=== PATIENT | female | born 1930 | race Caucasian/White ===

== ENCOUNTER 2017-04-09 12:55 | Inpatient (IN) ==
[2017-04-10] MEDS: Acetaminophen 325 MG TABLET PO PRN ×2 (05:19→20:35)
[2017-04-10 05:57] LABS: Basophils # 0.1 K/mcL (0.0-0.2); Basophils % 0.8 %; Eosinophils # 0.3 K/mcL (0.0-0.6); Eosinophils % 3.5 %; Hematocrit 29.7 % (35.3-44.9); Hemoglobin 10.2 g/dL (11.5-15.4); Immature Granulocytes % 0.5 % (0-4); Lymphocytes # 2.3 K/mcL (0.6-4.6); Lymphocytes % 29.7 %; Mean Corpuscular HGB Conc 34.3 g/dL (31.6-35.5); Mean Corpuscular Hemoglobin 32.6 pg (28.0-33.3); Mean Corpuscular Volume 94.9 fL (83.0-100.0); Mean Platelet Volume 9.4 fL (9.4-12.4); Monocytes # 0.6 K/mcL (0.0-1.3); Monocytes % 7.7 %; Neutrophils # 4.4 K/mcL (1.6-8.9); Platelet Count 328 K/mcL (140-400); Red Blood Count 3.13 M/mcL (3.82-4.97); Red Cell Distribution Width 13.2 % (11.5-14.5); Segmented Neutrophils % 57.8 %
[2017-04-10 06:00] LABS: Prothrombin Time 11.2 Seconds (9.4-12.1)
[2017-04-10 06:03] LABS: Activated Partial Thrombo Time 29.5 Seconds (26.0-36.0)
[2017-04-10 07:08] LABS: BUN/Creatinine Ratio 23 (6-26); Blood Urea Nitrogen 13 mg/dL (7-20); Calcium 9.2 mg/dL (8.6-10.8); Carbon Dioxide 25 mEq/L (19-29); Chloride 104 mEq/L (98-109); Glucose 131 mg/dL (70-99); Osmolality,Calculated 284 (280-300); Potassium 4.1 mEq/L (3.5-4.5); Sodium 136 mEq/L (136-145); eGFR For African Americans > 60 (> 60); eGFR For Non-African Americans > 60 (> 60)
[2017-04-10] MEDS: *HR* Metformin 850 MG TABLET PO SCH ×2 (09:43→18:32)
[2017-04-10] MEDS: Aspirin Enteric Coated 325 MG Tablet PO SCH (09:43)
--- NOTE | 2017-04-10 14:31 | Internal Med History&Physical ---
Date of Encounter: 04/10/17 Time of Encounter: 14:24 Assessment and Plan (1) Status post placement of cardiac pacemaker Current visit: Yes Status: Acute monitor incision. f/u with cardiology as scheduled. (2) Physical deconditioning Current visit: Yes Status: Acute PT, OT, eval and treat. will follow progress (3) Essential hypertension Current visit: Yes Status: Acute elevated BP this am. will monitor trends and may adjust meds if necessary. (4) Anemia Current visit: Yes Status: Acute stable hgb 10.2. will monitor. Qualifiers: Anemia type: unspecified type Qualified Code(s): D64.9 - Anemia, unspecified Internal Medicine - H&P: HPI Chief complaint: physical deconditioning Admitted From: Hospital to Hospital Transfer Plans for Post Hospital Care: Home History of present illness: Ms. Mckeon is a 86 year old female admitted for rehab for physical deconditioning s/p pacemaker placement. hx of DM2, afib, bradycardia, and HTN, frequent falls. lives at home alone. c/o increased fatigue. denies SOB, chest pain, fever, chills, NVD. Past Med Surg Social Fam HX - Past Medical History Medical history: arthritis, atrial fibrillation, cancer, CHF, diabetes, GERD, hepatitis, hypertension - Past Surgical History Surgical History: cholecystectomy, other, pacemaker - Social History Smoking Status: Never smoker Alcohol use: none Drug use: none - Family History Father Living Status: Cause of : kidney disease Internal Medicine - H&P: Meds Acetaminophen [Non-Aspirin] 650 mg PO Q6HR PRN 04/09/17 [History] Aspirin [Ecotrin] 325 mg PO DAILY 04/09/17 [History] Bisacodyl [Woman's Laxative] 10 mg PO DAILY PRN 04/09/17 [History] Calcium Carbonate [Calcium] 600 mg PO DAILY 04/09/17 [History] Losartan [Cozaar] 50 mg PO DAILY 04/09/17 [History] Raloxifene [Evista] 60 mg PO DAILY 04/09/17 [History] Sotalol [Betapace] 80 mg PO Q12HR 04/09/17 [History] metFORMIN [Glucophage] 850 mg PO BIDWM 04/09/17 [History] 3 Allergy/AdvReac Type Severity Reaction Status Date / Time amiodarone Allergy See Verified 04/09/17 21:49 Comments All Systems PM: A 10-system review of systems was performed and is negative for pertinent findings except as documented above in the HPI. - Constitutional Constitutional: fatigue, no chills, no fever(s), no night sweats - EENT Eyes: no change in vision, no discharge, no pain, no photophobia Ears: no ear discharge, no ear pain, no tinnitus Nose, mouth and throat: no dysphagia, no nasal discharge, no neck pain, no sore throat - Cardiovascular Cardiovascular ROS IM: no chest pain, no diaphoresis, no dyspnea, no lightheadedness, no palpitations, no syncope - Respiratory Respiratory: no cough, no dyspnea, no wheezing, no excessive phlegm production - Gastrointestinal Gastrointestinal: no abdominal pain, no diarrhea, no hematemesis, no hematochezia, no melena, no nausea, no vomiting - Genitourinary Genitourinary: no change in urinary stream, no dysuria, no flank pain, no hematuria - Musculoskeletal Musculoskeletal ROS IM: no numbness, no tingling - Integumentary Integumentary IM: no rash, no unusual bruising - Neurological Neurological ROS: no confusion, no convulsions, no focal weakness, no numbness, no tingling, no tremor(s) - Hematologic/Lymphatic Hematologic/Lymphatic: no easy bruising - Constitutional Vitals: Temp Pulse Resp BP Pulse Ox 98.6 F 61 16 160/75 95 04/10/17 11:48 04/10/17 11:48 04/10/17 11:48 04/10/17 11:48 04/10/17 11:48 General appearance: Present: A&O X 3, pleasant, no acute distress, answers questions appropriately - Head Head exam: Present: atraumatic, normocephalic - Eye Eye exam: Present: PERRL, conjuntiva pink, sclera anicteric Pupils: Present: PERRL - Neck Neck exam general surgery: Present: supple, trachea midline. Absent: lymphadenopathy - Respiratory Respiratory exam: Present: CTAB. Absent: accessory muscle use, rales, rhonchi, wheezes - Cardiovascular Cardiovascular exam: Present: RRR, +S1, +S2. Absent: diastolic murmur, gallop, rubs, systolic murmur - GI/Abdominal GI/Abdominal exam: Present: normal bowel sounds, soft, no peritoneal signs. Absent: distended, tenderness - Extremities Exam Extremities exam: Present: warm, radial pulses palpable and symmetrical. Absent : calf tenderness, cyanotic, pedal edema Additional comments: edema LUE - Neurological Exam Neurological exam: Present: CN II-XII intact, oriented X3, no focal deficits. Absent: pronater drift, facial droop, speech deficit - Skin Skin exam: Present: dry, intact Additional comments: left chest pacemaker incision - drsg dry and intact. Internal Med - H&P Results - Labs CBC & Chem 7: 04/10/17 05:35 04/10/17 06:47 Labs: Short CBC 04/10/17 Range/Units 05:35 WBC 7.7 (4.3-11.1) K/mcL Hgb 10.2 L (11.5-15.4) g/dL Hct 29.7 L (35.3-44.9) % Plt Count 328 (140-400) K/mcL Neutrophils # 4.4 (1.6-8.9) K/mcL BMP 04/10/17 06:47 Sodium 136 Potassium 4.1 Chloride 104 Carbon Dioxide 25 BUN 13 Creatinine 0.57 Glucose 131 H Calcium 9.2 - VTE Documentation of Mechanical Device: Graduated compression elastic hosiery
[2017-04-11] MEDS: Acetaminophen 325 MG TABLET PO PRN ×2 (03:27→09:14)
[2017-04-11] MEDS: *HR* Metformin 850 MG TABLET PO SCH ×2 (09:14→17:18)
[2017-04-11] MEDS: Aspirin Enteric Coated 325 MG Tablet PO SCH (09:15)
--- NOTE | 2017-04-11 10:24 | Internal Med Progress Note ---
Date of Encounter: 04/11/17 Time of Encounter: 10:21 - Assessment and plan (1) Status post placement of cardiac pacemaker Current Visit: Yes Status: Acute Assessment and plan: No acute issues. Left subclavian surgical site appears healthy dressing dry and intact. Patient with history of atrial fibrillation, currently her heart rate was regular on auscultation. Unaware pacemaker set rate Patient to continue on telemetry monitoring. Patient did have complaints of slight dizziness during standing. Obtain with current medications. Vital signs stable (2) Essential hypertension Current Visit: Yes Status: Acute Assessment and plan: Vital signs stable. We will continue his current medications. (3) Physical deconditioning Current Visit: Yes Status: Acute Assessment and plan: Patient currently states that she is unable to stand, that she has been too weak. Noted to have slight anxiety during repositioning and questioning. Medical records shows the patient was living alone at home and was able to maintain her ADLs prior to admission for pacemaker. We will recommend psychiatry to evaluate patient for further recommendations. Patient to continue with PT/OT (4) Arm edema Current Visit: Yes Status: Acute Assessment and plan: Patient with edema to left forearm and hand. Patient states she does not remember if she had an IV to the arm. Edema has been reduced over the last 24 hours. We will continue to maintain left arm elevated. - Subjective Interval history: Patient appears relaxed but does complain of moderate pain to her right lower arm. Right forearm and hand noted to have moderate swelling, the status is patient's swelling to the left arm has reduced greatly over the past 24 hours. Patient denies any chest discomforts, dyspnea or palpitations. Patient does state she become dizzy when first standing but denies any other syncopal symptoms. Patient currently states that she is too weak to stand and reports from therapy states possible poor effort. Medical records show patient was independent and living alone and was able to maintain her ADLs. - Constitutional Vitals: Temp Pulse Resp BP Pulse Ox 97.5 F L 59 16 175/75 96 04/11/17 07:07 04/11/17 07:07 04/11/17 07:07 04/11/17 07:07 04/11/17 07:07 General appearance: Present: A&O X 3, pleasant, no acute distress, answers questions appropriately - Head Head exam: Present: atraumatic, normocephalic - Eye Eye exam: Present: PERRL, conjuntiva pink, sclera anicteric Pupils: Present: PERRL - Neck Neck exam general surgery: Present: supple, trachea midline. Absent: lymphadenopathy - Respiratory Respiratory exam: Present: CTAB. Absent: accessory muscle use, rhonchi, wheezes Additional comments: Lungs are clear to up refills noted coarse rales to the lower posterior donald. Patient noted to be somewhat anxious during repositioning and observed with a panting type respiratory pattern. Denies shortness of breath - Cardiovascular Cardiovascular exam: Present: RRR, +S1, +S2. Absent: diastolic murmur, gallop, rubs, systolic murmur Additional comments: Subclavian pacemaker site with dressing clean and dry and intact. - GI/Abdominal GI/Abdominal exam: Present: normal bowel sounds, soft, no peritoneal signs. Absent: distended, tenderness - Extremities Exam Extremities exam: Present: warm, radial pulses palpable and symmetrical. Absent : calf tenderness, cyanotic, pedal edema Additional comments: 1. Edema to left forearm and hand. No limits to range of motion. Refill less than 3 seconds - Neurological Exam Neurological exam: Present: CN II-XII intact, oriented X3, no focal deficits. Absent: pronater drift, facial droop, speech deficit - Psychiatric Psychiatric exam: Present: anxious Additional comments: Observed becoming somewhat anxious during repositioning and questioning. Patient has hesitant to assist and repositioning during exam. Show patient was independent prior to her admission for pacemaker and was able to maintain her ADLs while living alone. Patient currently states that she is unable to stand his to too weak. - Skin Skin exam: Present: dry, intact Internal Medicine: Result - Labs CBC & Chem 7: 04/10/17 05:35 04/10/17 06:47 - ABG Interpretation ABG results: PT/INR, D-dimer PT 11.2 Seconds (9.4-12.1) 04/10/17 05:35 - VTE Documentation of Mechanical Device: Graduated compression elastic hosiery Consult Discharge Plan - Plan Referrals: Zaheer Cuba [Primary Care Provider] - (Follow up April at 2:30 Pacemaker Check [address] [place] [phone] Follow up March Cardiology [address] [place] [address] [id number] )
[2017-04-12] MEDS: *HR* Metformin 850 MG TABLET PO SCH ×2 (09:39→18:51)
[2017-04-12] MEDS: Aspirin Enteric Coated 325 MG Tablet PO SCH (09:40)
--- NOTE | 2017-04-12 11:24 | Internal Med Progress Note ---
Date of Encounter: 04/12/17 Time of Encounter: 11:22 - Assessment and plan (1) Status post placement of cardiac pacemaker Current Visit: Yes Status: Acute Assessment and plan: No acute issues. Left subclavian surgical site appears healthy dressing dry and intact. Patient with history of atrial fibrillation, currently her heart rate was regular on auscultation. Patient denies any palpitations or chest discomforts. We will continue with current medications. Vital signs stable (2) Essential hypertension Current Visit: Yes Status: Acute Assessment and plan: Vital signs stable. We will continue his current medications. (3) Physical deconditioning Current Visit: Yes Status: Acute Assessment and plan: Patient continues with moderate generalized weakness. States that she has been having difficulty ambulating with walker. Her medical history patient lives alone and is able to maintain ADLs prior to admission. Patient to continue with PT/OT (4) Arm edema Current Visit: Yes Status: Acute Assessment and plan: Edema to left arm and hand has mostly resolved. - Subjective Interval history: Patient appears relaxed. Patient currently denies any discomforts or shortness of breath. States that her pain to her arm has diminished overnight left arm swelling appears to mostly resolved. Patient denies any palpitations or chest discomforts. Patient noted to be less anxious today during interaction. Noted less guarding during repositioning - Constitutional Vitals: Temp Pulse Resp BP Pulse Ox 98.0 F 59 16 180/76 94 04/12/17 08:00 04/12/17 08:00 04/12/17 08:00 04/12/17 08:00 04/12/17 08:00 General appearance: Present: A&O X 3, pleasant, no acute distress, answers questions appropriately - Head Head exam: Present: atraumatic, normocephalic - Eye Eye exam: Present: PERRL, conjuntiva pink, sclera anicteric Pupils: Present: PERRL - Neck Neck exam general surgery: Present: supple, trachea midline. Absent: lymphadenopathy - Respiratory Respiratory exam: Present: CTAB. Absent: accessory muscle use, rales, rhonchi, wheezes - Cardiovascular Cardiovascular exam: Present: RRR, +S1, +S2. Absent: diastolic murmur, gallop, rubs, systolic murmur - GI/Abdominal GI/Abdominal exam: Present: normal bowel sounds, soft, no peritoneal signs. Absent: distended, tenderness - Extremities Exam Extremities exam: Present: warm, radial pulses palpable and symmetrical. Absent : calf tenderness, cyanotic, pedal edema Additional comments: Left arm with small amount of bruising on the dorsal side and slight edema to hand and distal forearm. - Neurological Exam Neurological exam: Present: CN II-XII intact, oriented X3, no focal deficits. Absent: pronater drift, facial droop, speech deficit - Skin Skin exam: Present: dry, intact Internal Medicine: Result - Labs CBC & Chem 7: 04/10/17 05:35 04/10/17 06:47 - ABG Interpretation ABG results: PT/INR, D-dimer PT 11.2 Seconds (9.4-12.1) 04/10/17 05:35 - Impressions Impressions Chest X-Ray 04/12/17 06:00 IMPRESSION: Minimal left base atelectasis D/ / Yash Worthington MD / Yash Worthington MD Interpreting Provider: Yash Worthington MD - Diagnostic Studies Chest x-ray Status: image reviewed by me Additional comments: Chest x-ray reviewed which shows no acute process - VTE Documentation of Mechanical Device: Graduated compression elastic hosiery Consult Discharge Plan - Plan Referrals: Zaheer Cuba [Primary Care Provider] - (Follow up April at 2:30 Pacemaker Check [address] [place] [id number] Follow up March Cardiology [address] [place] [phone] )
[2017-04-13] MEDS: *HR* Metformin 850 MG TABLET PO SCH ×2 (09:23→17:16)
[2017-04-13] MEDS: Aspirin Enteric Coated 325 MG Tablet PO SCH (09:23)
--- NOTE | 2017-04-13 11:57 | Internal Med Progress Note ---
Date of Encounter: 04/13/17 Time of Encounter: 12:00 - Assessment and plan (1) Status post placement of cardiac pacemaker Current Visit: Yes Status: Acute Assessment and plan: Clinically stable without signs of infection. Rhythm is regular to examination. (2) Physical deconditioning Current Visit: Yes Status: Acute Assessment and plan: She seems to be better and states she's feeling stronger. She has a better attitde about participating with therapies. Will continue as planned. (3) Essential hypertension Current Visit: Yes Status: Acute Assessment and plan: Vital signs with recurrent hypertensive readings. Will add PRN clonicine and follow, may alter regimen. (4) Arm edema Current Visit: Yes Status: Acute Assessment and plan: Improved, as per exam. - Time Spent With Patient 25 - 35 minutes - Subjective Interval history: Patient is feeling progressively better and has not had as much pain in hand. She notes that her swelling has diminihsed in the left upper extremity. She has not experienced pain at the left upper chest at her pacer insertion site. ROS is otherwise unremarkable and she denies cough or dyspnea. She has no other issues. - Constitutional Vitals: Temp Pulse Resp BP Pulse Ox 98.0 F 60 16 171/70 94 04/13/17 08:12 04/13/17 08:12 04/13/17 08:12 04/13/17 08:12 04/13/17 08:12 General appearance: Present: A&O X 3, pleasant, no acute distress, answers questions appropriately - Head Head exam: Present: atraumatic, normocephalic - Eye Eye exam: Absent: conjunctival injection - ENT ENT exam: Present: mucous membranes moist - Respiratory Respiratory exam: Present: rales. Absent: accessory muscle use Additional comments: Bilaeral rales with right worse than left. Left upper chest pacemaker site is dry and intqct. - Cardiovascular Cardiovascular exam: Present: RRR - GI/Abdominal GI/Abdominal exam: Present: normal bowel sounds. Absent: hepatomegaly, splenomegaly, tenderness Additional comments: Examined in chair, so limited but benign, clinically. - Extremities Exam Extremities exam: Absent: calf tenderness, pedal edema, tenderness Additional comments: Left upper extremity has improved with regard to edema- encouraged continued elevation. - Skin Skin exam: Present: dry, intact Internal Medicine: Result - Labs CBC & Chem 7: 04/10/17 05:35 04/10/17 06:47 - ABG Interpretation ABG results: PT/INR, D-dimer PT 11.2 Seconds (9.4-12.1) 04/10/17 05:35 - VTE Documentation of Mechanical Device: Graduated compression elastic hosiery Consult Discharge Plan - Plan Referrals: Zaheer Cuba [Primary Care Provider] - (Follow up April at 2:30 Pacemaker Check [address] [place] [id number] Follow up March Cardiology [address] [place] [phone] )
[2017-04-13] MEDS ORDERED: cloNIDine HCl 0.1 MG TABLET PO PRN (13:51)
[2017-04-14] MEDS: *HR* Metformin 850 MG TABLET PO SCH ×2 (09:23→17:05)
[2017-04-14] MEDS: Aspirin Enteric Coated 325 MG Tablet PO SCH (09:23)
--- NOTE | 2017-04-14 15:42 | Internal Med Progress Note ---
Date of Encounter: 04/14/17 Time of Encounter: 16:00 - Assessment and plan (1) Status post placement of cardiac pacemaker Current Visit: Yes Status: Acute Assessment and plan: Clinically stable without signs of infection. Rhythm is regular to examination. (2) Physical deconditioning Current Visit: Yes Status: Acute Assessment and plan: She seems to be better and states she's feeling stronger. She has a better attitde about participating with therapies. Will continue as planned. (3) Essential hypertension Current Visit: Yes Status: Acute Assessment and plan: Vital signs with recurrent hypertensive readings. Will add PRN clonicine and follow, may alter regimen. (4) Arm edema Current Visit: Yes Status: Acute Assessment and plan: Improved, as per exam. - Time Spent With Patient 25 - 35 minutes - Subjective Interval history: Patient is feeling progressively better and has not had as much pain in hand. She notes that her swelling has diminihsed in the left upper extremity. She has not experienced pain at the left upper chest at her pacer insertion site. ROS is otherwise unremarkable and she denies cough or dyspnea. She has no other issues. - Constitutional Vitals: Temp Pulse Resp BP Pulse Ox 98.2 F 64 16 162/72 96 04/14/17 09:00 04/14/17 09:00 04/14/17 09:00 04/14/17 09:00 04/14/17 09:00 General appearance: Present: A&O X 3, pleasant, no acute distress, answers questions appropriately - Head Head exam: Present: atraumatic, normocephalic - Respiratory Respiratory exam: Present: CTAB. Absent: accessory muscle use, rhonchi, wheezes , tachypnea - Cardiovascular Cardiovascular exam: Present: RRR. Absent: systolic murmur - GI/Abdominal GI/Abdominal exam: Present: normal bowel sounds. Absent: hepatomegaly, splenomegaly, tenderness - Extremities Exam Extremities exam: Present: normal capillary refill, warm, radial pulses palpable and symmetrical. Absent: calf tenderness, pedal edema Additional comments: Edema at left upper extremity persists, but improved vs. yesterday. Internal Medicine: Result - Labs CBC & Chem 7: 04/10/17 05:35 04/10/17 06:47 - ABG Interpretation ABG results: PT/INR, D-dimer PT 11.2 Seconds (9.4-12.1) 04/10/17 05:35 - VTE Documentation of Mechanical Device: Graduated compression elastic hosiery Consult Discharge Plan - Plan Referrals: Zaheer Cuba [Primary Care Provider] - (Follow up April at 2:30 Pacemaker Check [address] [place] [phone] Follow up March Cardiology [address] [place] [phone] )
[2017-04-15] MEDS: Acetaminophen 325 MG TABLET PO PRN (01:01)
[2017-04-15] MEDS: *HR* Metformin 850 MG TABLET PO SCH ×2 (08:44→16:50)
[2017-04-15] MEDS: Aspirin Enteric Coated 325 MG Tablet PO SCH (08:44)
--- NOTE | 2017-04-15 09:22 | Internal Med Progress Note ---
Date of Encounter: 04/15/17 Time of Encounter: 09:25 - Assessment and plan (1) Status post placement of cardiac pacemaker Current Visit: Yes Status: Acute Assessment and plan: Clinically stable without signs of infection. Rhythm is regular to examination. (2) Physical deconditioning Current Visit: Yes Status: Acute Assessment and plan: Therapy as planned. (3) Essential hypertension Current Visit: Yes Status: Acute (4) Arm edema Current Visit: Yes Status: Acute Assessment and plan: See extremities exam. - Subjective Interval history: Continues to improve and denies issues. Had normal BM yesterday.. ROS is otherwise unremarkable and she denies cough or dyspnea. - Constitutional Vitals: Temp Pulse Resp BP Pulse Ox 97.0 F L 64 18 138/75 97 04/15/17 07:00 04/15/17 07:00 04/15/17 07:00 04/15/17 07:00 04/15/17 07:00 General appearance: Present: A&O X 3, pleasant, no acute distress, answers questions appropriately - Neck Neck exam general surgery: Present: full ROM, supple, trachea midline - Respiratory Respiratory exam: Present: CTAB. Absent: accessory muscle use Additional comments: No signs of infection and no loculation, etc. - Cardiovascular Cardiovascular exam: Present: RRR. Absent: systolic murmur - GI/Abdominal GI/Abdominal exam: Present: normal bowel sounds. Absent: hepatomegaly, splenomegaly, tenderness - Extremities Exam Extremities exam: Present: calf tenderness. Absent: cyanotic, pedal edema Additional comments: Left upper extremity edema isstill present but almost totally resolved. No pain at the hand, wrist, or forearm. Left calf tenderness which is her baseline, per her. Nothing new. Internal Medicine: Result - Labs CBC & Chem 7: 04/10/17 05:35 04/10/17 06:47 - ABG Interpretation ABG results: PT/INR, D-dimer PT 11.2 Seconds (9.4-12.1) 04/10/17 05:35 - VTE Documentation of Mechanical Device: Graduated compression elastic hosiery Consult Discharge Plan - Plan Referrals: Zaheer Cuba [Primary Care Provider] - (Follow up April at 2:30 Pacemaker Check [address] [place], [place] [phone] Follow up March Cardiology [facility] [place] [address] )
[2017-04-15 11:33] LABS: Basophils # 0.1 K/mcL (0.0-0.2); Basophils % 0.7 %; Eosinophils # 0.3 K/mcL (0.0-0.6); Eosinophils % 3.7 %; Hematocrit 30.4 % (35.3-44.9); Hemoglobin 10.4 g/dL (11.5-15.4); Immature Granulocytes % 0.5 % (0-4); Lymphocytes # 2.1 K/mcL (0.6-4.6); Lymphocytes % 25.3 %; Mean Corpuscular HGB Conc 34.2 g/dL (31.6-35.5); Mean Corpuscular Volume 93.5 fL (83.0-100.0); Monocytes # 0.6 K/mcL (0.0-1.3); Monocytes % 7.9 %; Platelet Count 385 K/mcL (140-400); Red Blood Count 3.25 M/mcL (3.82-4.97); Red Cell Distribution Width 13.3 % (11.5-14.5); Segmented Neutrophils % 61.9 %
[2017-04-15 11:52] LABS: BUN/Creatinine Ratio 23 (6-26); Blood Urea Nitrogen 15 mg/dL (7-20); Calcium 9.9 mg/dL (8.6-10.8); Carbon Dioxide 23 mEq/L (19-29); Chloride 104 mEq/L (98-109); Glucose 130 mg/dL (70-99); Magnesium 1.6 mg/dL (1.6-2.6); Osmolality,Calculated 287 (280-300); Sodium 137 mEq/L (136-145); eGFR For African Americans > 60 (> 60); eGFR For Non-African Americans > 60 (> 60)
[2017-04-16] MEDS: Aspirin Enteric Coated 325 MG Tablet PO SCH (08:28)
[2017-04-16] MEDS: *HR* Metformin 850 MG TABLET PO SCH ×2 (08:28→18:41)
--- NOTE | 2017-04-16 08:51 | Internal Med Progress Note ---
Date of Encounter: 04/16/17 Time of Encounter: 08:55 - Assessment and plan (1) Status post placement of cardiac pacemaker Current Visit: Yes Status: Acute Assessment and plan: Clinically stable without signs of infection. Rhythm is regular to examination. (2) Physical deconditioning Current Visit: Yes Status: Acute Assessment and plan: Therapy as planned. See HPI. (3) Essential hypertension Current Visit: Yes Status: Acute Assessment and plan: Stable. (4) Arm edema Current Visit: Yes Status: Acute Assessment and plan: See extremities exam. (5) Atelectasis of both lungs Current Visit: Yes Status: Acute Assessment and plan: She is somewhat improved with incentive spirometry. Encouraged continued use. Will follow. - Subjective Interval history: Continues to improve and denies issues. Feels that her left wrist is "almost normal." She agrees to participate with therapies today and is pleased with her progress. Had a good BM yesterday. She denies cough or dyspnea. - Constitutional Vitals: Temp Pulse Resp BP Pulse Ox 98.2 F 60 16 151/74 94 04/16/17 07:05 04/16/17 07:05 04/16/17 07:05 04/16/17 07:05 04/16/17 07:05 General appearance: Present: A&O X 3, pleasant, no acute distress, answers questions appropriately - Neck Neck exam general surgery: Present: supple, trachea midline - Respiratory Respiratory exam: Present: prolonged expiratory phase. Absent: accessory muscle use, rhonchi, stridor, wheezes Additional comments: Chest wall is healing nicely at left upper -- pacemaker insertion site. - Cardiovascular Cardiovascular exam: Present: RRR. Absent: systolic murmur - GI/Abdominal GI/Abdominal exam: Present: normal bowel sounds. Absent: hepatomegaly, splenomegaly, tenderness Additional comments: Examined win wheelchair so exam is limited - Extremities Exam Extremities exam: Present: calf tenderness, normal capillary refill, normal inspection. Absent: pedal edema Additional comments: Left calf tenderness as before and has per her history. Internal Medicine: Result - Labs CBC & Chem 7: 04/15/17 11:25 04/15/17 11:25 Labs: Short CBC 04/15/17 Range/Units 11:25 WBC 8.1 (4.3-11.1) K/mcL Hgb 10.4 L (11.5-15.4) g/dL Hct 30.4 L (35.3-44.9) % Plt Count 385 (140-400) K/mcL Neutrophils # 5.0 (1.6-8.9) K/mcL BMP 04/15/17 11:25 Sodium 137 Potassium 4.0 Chloride 104 Carbon Dioxide 23 BUN 15 Creatinine 0.64 Glucose 130 H Calcium 9.9 - ABG Interpretation ABG results: PT/INR, D-dimer PT 11.2 Seconds (9.4-12.1) 04/10/17 05:35 - VTE Documentation of Mechanical Device: Graduated compression elastic hosiery Consult Discharge Plan - Plan Referrals: Zaheer Cuba [Primary Care Provider] - (Follow up April at 2:30 Pacemaker Check [address] [place] [phone] Follow up March Cardiology [address] [place] [phone] )
[2017-04-17] MEDS: *HR* Metformin 850 MG TABLET PO SCH ×2 (09:14→18:17)
[2017-04-17] MEDS: Aspirin Enteric Coated 325 MG Tablet PO SCH (09:14)
--- NOTE | 2017-04-17 11:38 | Internal Med Progress Note ---
Date of Encounter: 04/17/17 Time of Encounter: 11:35 - Assessment and plan (1) Status post placement of cardiac pacemaker Current Visit: Yes Status: Acute Assessment and plan: Clinically stable without signs of infection. Rhythm is regular to examination. (2) Physical deconditioning Current Visit: Yes Status: Acute Assessment and plan: Continue PT\\JANA schedule. Will monitor progress (3) Essential hypertension Current Visit: Yes Status: Acute Assessment and plan: Stable. Continue current medications. Monitor blood pressure (4) Anemia Current Visit: Yes Status: Acute Assessment and plan: Stable. Monitor hemoglobin Qualifiers: Anemia type: unspecified type Qualified Code(s): D64.9 - Anemia, unspecified - Time Spent With Patient less than 15 minutes - Subjective Interval history: Participating well with therapy. Patient states" I am feeling stronger and not as tired". Denies shortness of breath, fever, chills, nausea, vomiting, diarrhea. Denies pain or any other complaints at this time. Maintaining appetite and hydration. Bowels moving as normal - Constitutional Vitals: Temp Pulse Resp BP Pulse Ox 97.7 F 60 16 166/76 95 04/17/17 07:00 04/17/17 07:00 04/17/17 07:00 04/17/17 07:00 04/17/17 07:00 General appearance: Present: A&O X 3, pleasant, no acute distress, answers questions appropriately - Head Head exam: Present: atraumatic, normocephalic - Eye Eye exam: Present: PERRL, conjuntiva pink, sclera anicteric Pupils: Present: PERRL - Neck Neck exam general surgery: Present: supple, trachea midline. Absent: lymphadenopathy - Respiratory Respiratory exam: Present: CTAB. Absent: accessory muscle use, rales, rhonchi, wheezes - Cardiovascular Cardiovascular exam: Present: RRR, +S1, +S2. Absent: diastolic murmur, gallop, rubs, systolic murmur - GI/Abdominal GI/Abdominal exam: Present: normal bowel sounds, soft, no peritoneal signs. Absent: distended, tenderness - Extremities Exam Extremities exam: Present: warm, radial pulses palpable and symmetrical. Absent : calf tenderness, cyanotic, pedal edema Additional comments: Left upper extremity edema. Denies any pain - Incison Incision: Present: clean and dry Comments: Left chest incision status post pacemaker. Dry and intact. No sign of infection - Neurological Exam Neurological exam: Present: CN II-XII intact, oriented X3, no focal deficits. Absent: pronater drift, facial droop, speech deficit - Skin Skin exam: Present: dry, intact Internal Medicine: Result - Labs CBC & Chem 7: 04/15/17 11:25 04/15/17 11:25 - ABG Interpretation ABG results: PT/INR, D-dimer PT 11.2 Seconds (9.4-12.1) 04/10/17 05:35 - VTE Documentation of Mechanical Device: Graduated compression elastic hosiery Consult Discharge Plan - Plan Referrals: Zaheer Cuba [Primary Care Provider] - (Follow up April at 2:30 Pacemaker Check [address] [place] [id number] Follow up March Cardiology [address] [place] [phone] )
--- NOTE | 2017-04-17 11:47 | Psychological Evaluation ---
Date of Encounter: 04/17/17 Time of Encounter: 11:00 History of Present Illness History of present illness: Ms. Mckeon is a 86 year old female admitted for rehab for physical deconditioning s/p pacemaker placement. hx of DM2, afib, bradycardia, and HTN, frequent falls. lives at home alone. c/o increased fatigue. denies SOB, chest pain, fever, chills, NVD. Past Medical History - Psychiatric History Additional Psychiatric History: PMH is positive for arthritis, atrial fibrillation, cancer, CHF, diabetes, GERD , HTN and hepititis. Home Medications and Allergies Acetaminophen [Non-Aspirin] 650 mg PO Q6HR PRN 04/09/17 [History] Aspirin [Ecotrin] 325 mg PO DAILY 04/09/17 [History] Bisacodyl [Woman's Laxative] 10 mg PO DAILY PRN 04/09/17 [History] Calcium Carbonate [Calcium] 600 mg PO DAILY 04/09/17 [History] Losartan [Cozaar] 100 mg PO DAILY 04/09/17 [History] Raloxifene [Evista] 60 mg PO DAILY 04/09/17 [History] metFORMIN [Glucophage] 850 mg PO BIDWM 04/09/17 [History] Allopurinol [Zyloprim 100 MG] 100 mg PO DAILY 04/11/17 [History] Meclizine [Antivert] 25 mg PO HS 04/11/17 [History] Metoprolol [Lopressor] 50 mg PO DAILY 04/11/17 [History] amLODIPine [Norvasc] 5 mg PO DAILY 04/11/17 [History] 3 Allergy/AdvReac Type Severity Reaction Status Date / Time amiodarone Allergy See Verified 04/09/17 21:49 Comments Social History - Social History Social History: The patient has been a for approximately 22 years. She has 3 grown dhildren who reportedly are actively involved in her care. The patient lives alone and believes she can continue to live alone with additional care. The patient indicated Home Health would be beneficial to her care. 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 Assessment & Plan - Prognosis Prognosis: Fair (Mrs. Mckeon does not recognize contribution of anxiety to inability to reach rehabilitation potential. Therapists report the patient has the physical sklls and abilities to transfer , etc Recommendations are as follows: physician could consider use of anxiolytic. Mrs. Mckeon reported an acute anxiety reaction while in acute care. She was given "something" that alleviated anxiety. Use of same medication may be helpful. Have Mrs. Mckeon sit next to bed in wheelchair. Place sequence of transfer on wall within sight. Have the patient read the sequence. Assure patient that she has the ability to proceed on own and that therapists will be with her throughout. Have her then read the first step, e.g. remove arm rest from wheelchair. Have her complete task on own. Proceed to the end of the sequence. Standing--ask patient how many steps she can take. Ask patient to repeat procedure for standing and walking within parallel bars, e.g. lock brakes, scoot to end of chair, etc. Have patient stand and repeat how many steps she can take. Medication, if approved, should be given in a timely manner to enhance therapy.)
[2017-04-17] MEDS: Acetaminophen 325 MG TABLET PO PRN (18:16)
[2017-04-18] MEDS: Acetaminophen 325 MG TABLET PO PRN (05:03)
[2017-04-18] MEDS: *HR* Metformin 850 MG TABLET PO SCH ×2 (08:59→18:50)
[2017-04-18] MEDS: Aspirin Enteric Coated 325 MG Tablet PO SCH (08:59)
--- NOTE | 2017-04-18 12:36 | Internal Med Progress Note ---
Date of Encounter: 04/18/17 Time of Encounter: 12:34 - Assessment and plan (1) Status post placement of cardiac pacemaker Current Visit: Yes Status: Acute Assessment and plan: Pacemaker insertion site appears healthy and healing well patient's heart rate has been regular during examination. He denies any palpitations or chest discomfort. We will continue with current medications. (2) Essential hypertension Current Visit: Yes Status: Acute Assessment and plan: Stable. Continue current medications. Monitor blood pressure (3) Physical deconditioning Current Visit: Yes Status: Acute (4) Arm edema Current Visit: Yes Status: Acute (5) Anxiety Current Visit: Yes Status: Acute Assessment and plan: Patient was seen by psychiatry yesterday with recommendations received. Patient started on Ativan when necessary for anxiety. Patient currently interacting well with staff in no acute issues today. - Subjective Interval history: Patient appears relaxed. Patient currently denies any discomforts or shortness of breath. Patient denies any palpitations or chest discomforts. Patient noted to be less anxious today during interaction. - Constitutional Vitals: Temp Pulse Resp BP Pulse Ox 98.0 F 61 20 153/72 98 04/18/17 08:39 04/18/17 08:39 04/18/17 08:39 04/18/17 08:39 04/18/17 08:39 General appearance: Present: A&O X 3, pleasant, no acute distress, answers questions appropriately - Head Head exam: Present: atraumatic, normocephalic - Eye Eye exam: Present: PERRL, conjuntiva pink, sclera anicteric Pupils: Present: PERRL - Neck Neck exam general surgery: Present: supple, trachea midline. Absent: lymphadenopathy - Respiratory Respiratory exam: Present: CTAB. Absent: accessory muscle use, rales, rhonchi, wheezes - Cardiovascular Cardiovascular exam: Present: RRR, +S1, +S2. Absent: diastolic murmur, gallop, rubs, systolic murmur - GI/Abdominal GI/Abdominal exam: Present: normal bowel sounds, soft, no peritoneal signs. Absent: distended, tenderness - Extremities Exam Extremities exam: Present: warm, radial pulses palpable and symmetrical. Absent : calf tenderness, cyanotic, pedal edema - Neurological Exam Neurological exam: Present: CN II-XII intact, oriented X3, no focal deficits. Absent: pronater drift, facial droop, speech deficit Internal Medicine: Result - Labs CBC & Chem 7: 04/15/17 11:25 04/15/17 11:25 - ABG Interpretation ABG results: PT/INR, D-dimer PT 11.2 Seconds (9.4-12.1) 04/10/17 05:35 - VTE Documentation of Mechanical Device: Graduated compression elastic hosiery Consult Discharge Plan - Plan Referrals: Zaheer Cuba [Primary Care Provider] - (Follow up April at 2:30 Pacemaker Check [address] [place] [phone] Follow up [facility] [address] [place] [phone] )
[2017-04-18] MEDS: *HR* LORazepam 0.5 MG TABLET PO PRN (19:34)
[2017-04-19] MEDS: *HR* LORazepam 0.5 MG TABLET PO PRN ×3 (05:45→20:42)
[2017-04-19] MEDS: Aspirin Enteric Coated 325 MG Tablet PO SCH (09:12)
[2017-04-19] MEDS: *HR* Metformin 850 MG TABLET PO SCH ×2 (09:12→17:39)
--- NOTE | 2017-04-19 10:57 | Internal Med Progress Note ---
Date of Encounter: 04/19/17 Time of Encounter: 10:55 - Assessment and plan (1) Status post placement of cardiac pacemaker Current Visit: Yes Status: Acute Assessment and plan: Pacemaker insertion site appears healthy and healing well patient's heart rate has been regular during examination. She denies any palpitations or chest discomfort. We will continue with current medications. (2) Essential hypertension Current Visit: Yes Status: Acute Assessment and plan: Stable. Continue current medications. Monitor blood pressure (3) Physical deconditioning Current Visit: Yes Status: Acute Assessment and plan: Continue PT\JANA schedule. Will monitor progress (4) Arm edema Current Visit: Yes Status: Acute (5) Anxiety Current Visit: Yes Status: Acute Assessment and plan: Patient was seen by psychiatry with recommendations received. Patient started on Ativan when necessary for anxiety. Patient currently interacting well with staff in no acute issues today. - Subjective Interval history: Patient appears relaxed. Patient currently denies any discomforts or shortness of breath. Patient denies any palpitations or chest discomforts. Patient noted to be less anxious today during interaction. - Constitutional Vitals: Temp Pulse Resp BP Pulse Ox 98.7 F 67 16 169/68 95 04/19/17 07:00 04/19/17 07:00 04/19/17 07:00 04/19/17 07:00 04/19/17 07:00 General appearance: Present: A&O X 3, pleasant, no acute distress, answers questions appropriately - Head Head exam: Present: atraumatic, normocephalic - Eye Eye exam: Present: PERRL, conjuntiva pink, sclera anicteric Pupils: Present: PERRL - Neck Neck exam general surgery: Present: supple, trachea midline. Absent: lymphadenopathy - Respiratory Respiratory exam: Present: CTAB. Absent: accessory muscle use, rales, rhonchi, wheezes - Cardiovascular Cardiovascular exam: Present: RRR, +S1, +S2. Absent: diastolic murmur, gallop, rubs, systolic murmur - GI/Abdominal GI/Abdominal exam: Present: normal bowel sounds, soft, no peritoneal signs. Absent: distended, tenderness - Extremities Exam Extremities exam: Present: warm, radial pulses palpable and symmetrical. Absent : calf tenderness, cyanotic, pedal edema - Neurological Exam Neurological exam: Present: CN II-XII intact, oriented X3, no focal deficits. Absent: pronater drift, facial droop, speech deficit - Skin Skin exam: Present: dry, intact Additional comments: Left subclavian pacemaker surgical site appears to be healing well. Internal Medicine: Result - Labs CBC & Chem 7: 04/15/17 11:25 04/15/17 11:25 - ABG Interpretation ABG results: PT/INR, D-dimer PT 11.2 Seconds (9.4-12.1) 04/10/17 05:35 - VTE Documentation of Mechanical Device: Graduated compression elastic hosiery Consult Discharge Plan - Plan Referrals: Zaheer Cuba [Primary Care Provider] - (Follow up April at 2:30 Pacemaker Check [address] [place] [phone] Follow up [facility] [address] [place] [phone] )
[2017-04-19] MEDS: Acetaminophen 325 MG TABLET PO PRN (20:39)
[2017-04-20] MEDS: *HR* Metformin 850 MG TABLET PO SCH ×2 (09:34→17:54)
[2017-04-20] MEDS: Aspirin Enteric Coated 325 MG Tablet PO SCH (09:34)
--- NOTE | 2017-04-20 12:43 | Internal Med Progress Note ---
Date of Encounter: 04/20/17 Time of Encounter: 13:00 - Assessment and plan (1) Status post placement of cardiac pacemaker Current Visit: Yes Status: Acute Assessment and plan: Stable, cinically and site looks good. (2) Physical deconditioning Current Visit: Yes Status: Acute Assessment and plan: Continues with therapies and making good progress. Per psych recommendations, on Ativan and seems to be doing well, per nursing. (3) Essential hypertension Current Visit: Yes Status: Acute Assessment and plan: Stable. Continue current medications. (4) Arm edema Current Visit: Yes Status: Acute Assessment and plan: See extremities exam. (5) Atelectasis of both lungs Current Visit: Yes Status: Acute Assessment and plan: Encouraged continued use of incentive spirometry. Will follow. - Subjective Interval history: Denies problems. Feels sronger and participating with therapy. No dyspnea, lightheadedness, unsteadiness, abdominal pain, nausea, chest pain or palitations , sweating, bowel or bladder problems, etc. She's pleased with her progress and also with the diminution of her left arm swelling. - Constitutional Vitals: Temp Pulse Resp BP Pulse Ox 98.0 F 64 16 171/74 93 04/20/17 08:24 04/20/17 08:24 04/20/17 08:24 04/20/17 08:24 04/20/17 08:24 General appearance: Present: A&O X 3, pleasant, no acute distress, answers questions appropriately - Head Head exam: Present: atraumatic, normocephalic - Neck Neck exam general surgery: Present: full ROM. Absent: nuchal rigidity - Respiratory Respiratory exam: Present: rales. Absent: accessory muscle use Additional comments: Still with bibasilar rales and no wheezes or rhonchi. - Cardiovascular Cardiovascular exam: Present: RRR. Absent: systolic murmur - GI/Abdominal GI/Abdominal exam: Present: normal bowel sounds. Absent: hepatomegaly, splenomegaly, tenderness Additional comments: Examined in wheel chair. - Extremities Exam Extremities exam: Present: normal capillary refill, normal inspection. Absent: calf tenderness Additional comments: Left wrist and hand with almost no edema -- minimal edema at left fingers. - Neurological Exam Neurological exam: Present: CN II-XII intact, oriented X3 - Psychiatric Psychiatric exam: Present: normal affect, normal mood Internal Medicine: Result - Labs CBC & Chem 7: 04/15/17 11:25 04/15/17 11:25 - ABG Interpretation ABG results: PT/INR, D-dimer PT 11.2 Seconds (9.4-12.1) 04/10/17 05:35 - VTE Documentation of Mechanical Device: Graduated compression elastic hosiery Consult Discharge Plan - Plan Referrals: Zaheer Cuba [Primary Care Provider] - (Follow up April at 2:30 Pacemaker [address] [place] [phone] Follow up March [facility]iology [address] [place] [phone] )
[2017-04-21] MEDS: *HR* Metformin 850 MG TABLET PO SCH ×2 (09:32→16:55)
[2017-04-21] MEDS: Aspirin Enteric Coated 325 MG Tablet PO SCH (09:32)
--- NOTE | 2017-04-21 15:25 | Internal Med Progress Note ---
Date of Encounter: 04/21/17 Time of Encounter: 15:05 - Assessment and plan (1) Status post placement of cardiac pacemaker Current Visit: Yes Status: Acute Assessment and plan: Healing nicely. (2) Physical deconditioning Current Visit: Yes Status: Acute Assessment and plan: Continues with therapies and participation seems to be improving. (3) Essential hypertension Current Visit: Yes Status: Acute Assessment and plan: StableVS. Continue current medications. (4) Arm edema Current Visit: Yes Status: Acute Assessment and plan: See extremities exam. (5) Atelectasis of both lungs Current Visit: Yes Status: Acute Assessment and plan: Encouraged continued use of incentive spirometry. Improved but persistent. - Subjective Interval history: Denies problems. Continues to feel slightly better each day. ROS is unrmarkable. - Constitutional Vitals: Temp Pulse Resp BP Pulse Ox 97.3 F L 67 20 154/68 96 04/21/17 07:00 04/21/17 07:00 04/21/17 07:00 04/21/17 07:00 04/21/17 07:00 General appearance: Present: A&O X 3, pleasant, no acute distress, answers questions appropriately - Head Head exam: Present: atraumatic, normocephalic - Respiratory Respiratory exam: Present: rales. Absent: accessory muscle use Additional comments: Rales persist but still better than yesterday.. - Cardiovascular Cardiovascular exam: Present: RRR. Absent: systolic murmur - GI/Abdominal GI/Abdominal exam: Present: normal bowel sounds. Absent: hepatomegaly, splenomegaly, tenderness - Extremities Exam Extremities exam: Present: normal inspection. Absent: calf tenderness, pedal edema Additional comments: Now, even fingers are without edema. Internal Medicine: Result - Labs CBC & Chem 7: 04/15/17 11:25 04/15/17 11:25 - ABG Interpretation ABG results: PT/INR, D-dimer PT 11.2 Seconds (9.4-12.1) 04/10/17 05:35 - VTE Documentation of Mechanical Device: Graduated compression elastic hosiery Consult Discharge Plan - Plan Referrals: Zaheer Cuba [Primary Care Provider] - (Follow up April at 2:30 Pacemaker Check [facility] [phone] Follow up March Cardiology [facility] [place] [address] )
[2017-04-22 05:05] LABS: Basophils # 0.1 K/mcL (0.0-0.2); Basophils % 0.7 %; Eosinophils # 0.2 K/mcL (0.0-0.6); Eosinophils % 1.8 %; Immature Granulocytes % 0.5 % (0-4); Lymphocytes # 2.8 K/mcL (0.6-4.6); Lymphocytes % 30.3 %; Mean Corpuscular HGB Conc 33.3 g/dL (31.6-35.5); Mean Corpuscular Hemoglobin 31.1 pg (28.0-33.3); Mean Corpuscular Volume 93.2 fL (83.0-100.0); Monocytes # 0.7 K/mcL (0.0-1.3); Neutrophils # 5.4 K/mcL (1.6-8.9); Platelet Count 425 K/mcL (140-400); Red Blood Count 3.22 M/mcL (3.82-4.97); Red Cell Distribution Width 13.1 % (11.5-14.5); Segmented Neutrophils % 58.7 %
[2017-04-22 05:17] LABS: BUN/Creatinine Ratio 25 (6-26); Blood Urea Nitrogen 15 mg/dL (7-20); Calcium 9.6 mg/dL (8.6-10.8); Carbon Dioxide 22 mEq/L (19-29); Chloride 104 mEq/L (98-109); Glucose 103 mg/dL (70-99); Osmolality,Calculated 279 (280-300); Potassium 3.9 mEq/L (3.5-4.5); Sodium 134 mEq/L (136-145); eGFR For African Americans > 60 (> 60); eGFR For Non-African Americans > 60 (> 60)
[2017-04-22] MEDS: *HR* Metformin 850 MG TABLET PO SCH ×2 (09:17→18:35)
[2017-04-22] MEDS: Aspirin Enteric Coated 325 MG Tablet PO SCH (09:17)
[2017-04-22] MEDS: *HR* LORazepam 0.5 MG TABLET PO PRN ×2 (09:26→21:24)
[2017-04-22] MEDS: Acetaminophen 325 MG TABLET PO PRN ×2 (09:26→21:25)
--- NOTE | 2017-04-22 13:18 | Internal Med Progress Note ---
Date of Encounter: 04/22/17 Time of Encounter: 13:16 - Assessment and plan (1) Status post placement of cardiac pacemaker Current Visit: Yes Status: Acute Assessment and plan: incision healing. (2) Physical deconditioning Current Visit: Yes Status: Acute Assessment and plan: improving, continue PT/OT as scheduled. will follow progress. (3) Essential hypertension Current Visit: Yes Status: Acute Assessment and plan: StableVS. Continue current medications. (4) Anemia Current Visit: Yes Status: Acute Assessment and plan: Stable. Monitor hemoglobin Qualifiers: Anemia type: unspecified type Qualified Code(s): D64.9 - Anemia, unspecified - Time Spent With Patient less than 15 minutes - Subjective Interval history: Participating well with therapy. states feeling stronger with therapy. Denies shortness of breath, fever, chills, nausea, vomiting, diarrhea. Denies pain or any other complaints at this time. Maintaining appetite and hydration. Bowels moving as normal. therapy reports transfers have improved. able to state directions for sequence to transfer and ambulate but having trouble being consistent with follow through. - Constitutional Vitals: Temp Pulse Resp BP Pulse Ox 98.1 F 82 18 172/83 93 04/22/17 08:03 04/22/17 08:03 04/22/17 08:03 04/22/17 08:03 04/22/17 08:03 General appearance: Present: A&O X 3, pleasant, no acute distress, answers questions appropriately - Head Head exam: Present: atraumatic, normocephalic - Eye Eye exam: Present: PERRL, conjuntiva pink, sclera anicteric Pupils: Present: PERRL - Neck Neck exam general surgery: Present: supple, trachea midline. Absent: lymphadenopathy - Respiratory Respiratory exam: Present: CTAB. Absent: accessory muscle use, rales, rhonchi, wheezes - Cardiovascular Cardiovascular exam: Present: RRR, +S1, +S2. Absent: diastolic murmur, gallop, rubs, systolic murmur - GI/Abdominal GI/Abdominal exam: Present: normal bowel sounds, soft, no peritoneal signs. Absent: distended, tenderness - Extremities Exam Extremities exam: Present: warm, radial pulses palpable and symmetrical. Absent : calf tenderness, cyanotic, pedal edema - Neurological Exam Neurological exam: Present: CN II-XII intact, oriented X3, no focal deficits. Absent: pronater drift, facial droop, speech deficit - Skin Skin exam: Present: dry, intact Internal Medicine: Result - Labs CBC & Chem 7: 04/22/17 04:40 04/22/17 04:40 Labs: Short CBC 04/22/17 Range/Units 04:40 WBC 9.2 (4.3-11.1) K/mcL Hgb 10.0 L (11.5-15.4) g/dL Hct 30.0 L (35.3-44.9) % Plt Count 425 H (140-400) K/mcL Neutrophils # 5.4 (1.6-8.9) K/mcL BMP 04/22/17 04:40 Sodium 134 L Potassium 3.9 Chloride 104 Carbon Dioxide 22 BUN 15 Creatinine 0.60 Glucose 103 H Calcium 9.6 - ABG Interpretation ABG results: PT/INR, D-dimer PT 11.2 Seconds (9.4-12.1) 04/10/17 05:35 - VTE Documentation of Mechanical Device: Graduated compression elastic hosiery Consult Discharge Plan - Plan Referrals: Zaheer Cuba [Primary Care Provider] - (Follow up April at 2:30 Pacemaker Check [address] [place] [phone] Follow up [facility] [address] [place] [phone] )
[2017-04-23] MEDS: Aspirin Enteric Coated 325 MG Tablet PO SCH (08:55)
[2017-04-23] MEDS: *HR* Metformin 850 MG TABLET PO SCH ×2 (08:55→17:27)
--- NOTE | 2017-04-23 10:59 | Internal Med Progress Note ---
Date of Encounter: 04/23/17 Time of Encounter: 10:57 - Assessment and plan (1) Status post placement of cardiac pacemaker Current Visit: Yes Status: Acute Assessment and plan: incision healing. (2) Physical deconditioning Current Visit: Yes Status: Acute Assessment and plan: improving, continue PT/OT as scheduled. will follow progress. (3) Essential hypertension Current Visit: Yes Status: Acute Assessment and plan: BP running between 150's-170's/70's-80's. Continue current medications. will consider adjusting meds. (4) Anemia Current Visit: Yes Status: Acute Assessment and plan: Stable. Monitor hemoglobin Qualifiers: Anemia type: unspecified type Qualified Code(s): D64.9 - Anemia, unspecified - Time Spent With Patient less than 15 minutes - Subjective Interval history: Participating well with therapy, but fatigues easily. continues to feeling stronger with therapy. Denies shortness of breath, fever, chills, nausea, vomiting, diarrhea. Denies pain or any other complaints at this time. Maintaining appetite and hydration. Bowels moving as normal. left arm swelling improving. - Constitutional Vitals: Temp Pulse Resp BP Pulse Ox 97.9 F 61 20 174/74 97 04/23/17 09:46 04/23/17 09:46 04/22/17 19:22 04/23/17 09:46 04/23/17 09:46 General appearance: Present: A&O X 3, pleasant, no acute distress, answers questions appropriately - Head Head exam: Present: atraumatic, normocephalic - Eye Eye exam: Present: PERRL, conjuntiva pink, sclera anicteric Pupils: Present: PERRL - Neck Neck exam general surgery: Present: supple, trachea midline. Absent: lymphadenopathy - Respiratory Respiratory exam: Present: CTAB. Absent: accessory muscle use, rales, rhonchi, wheezes - Cardiovascular Cardiovascular exam: Present: RRR, +S1, +S2. Absent: diastolic murmur, gallop, rubs, systolic murmur - GI/Abdominal GI/Abdominal exam: Present: normal bowel sounds, soft, no peritoneal signs. Absent: distended, tenderness - Extremities Exam Extremities exam: Present: warm, radial pulses palpable and symmetrical. Absent : calf tenderness, cyanotic, pedal edema Additional comments: left arm and hand edema-improving. - Neurological Exam Neurological exam: Present: CN II-XII intact, oriented X3, no focal deficits. Absent: pronater drift, facial droop, speech deficit - Skin Skin exam: Present: dry, intact Internal Medicine: Result - Labs CBC & Chem 7: 04/22/17 04:40 04/22/17 04:40 - ABG Interpretation ABG results: PT/INR, D-dimer PT 11.2 Seconds (9.4-12.1) 04/10/17 05:35 - VTE Documentation of Mechanical Device: Graduated compression elastic hosiery Consult Discharge Plan - Plan Referrals: Zaheer Cuba [Primary Care Provider] - (Follow up April at 2:30 Pacemaker Check [address] [place] [phone] Follow up [facility] [address] [place] [phone] )
[2017-04-24] MEDS: Acetaminophen 325 MG TABLET PO PRN ×2 (03:58→09:36)
[2017-04-24] MEDS: *HR* LORazepam 0.5 MG TABLET PO PRN (03:58)
[2017-04-24] MEDS: Aspirin Enteric Coated 325 MG Tablet PO SCH (09:36)
[2017-04-24] MEDS: *HR* Metformin 850 MG TABLET PO SCH ×2 (09:36→17:43)
--- NOTE | 2017-04-24 12:20 | Internal Med Progress Note ---
Date of Encounter: 04/24/17 Time of Encounter: 12:17 - Assessment and plan (1) Status post placement of cardiac pacemaker Current Visit: Yes Status: Acute Assessment and plan: Pacemaker incision healing well. No reported palpitations or sycopal symptoms. HR reg. (2) Essential hypertension Current Visit: Yes Status: Acute Assessment and plan: BP WNL. Continue current medications. will consider adjusting meds. (3) Physical deconditioning Current Visit: Yes Status: Acute Assessment and plan: improving, continue PT/OT as scheduled. will follow progress. (4) Arm edema Current Visit: Yes Status: Acute Assessment and plan: Pt continues with slight nonpitting edema to left FA and hand. CV checks are WNL. Pt relates Hx of Gout, but no inflammatory process noted. Suspect pt with less use to the LUE due to recent surgery to left SC area. Will continue to monitor.. (5) Anxiety Current Visit: Yes Status: Acute - Subjective Interval history: Patient appears relaxed. Patient currently denies any shortness of breath. Pt does c/o generalized arthritic type pain and states that she takes medication for gout at home. States concern about the pain to her left hand being related to gout. Pt states that she cant remember the name of the gout medication she was taking. Patient denies any palpitations or chest discomforts. - Constitutional Vitals: Temp Pulse Resp BP Pulse Ox 98.2 F 79 16 132/72 95 04/24/17 07:00 04/24/17 07:00 04/24/17 07:00 04/24/17 07:00 04/24/17 07:00 General appearance: Present: A&O X 3, pleasant, no acute distress, answers questions appropriately - Head Head exam: Present: atraumatic, normocephalic - Eye Eye exam: Present: PERRL, conjuntiva pink, sclera anicteric Pupils: Present: PERRL - Neck Neck exam general surgery: Present: supple, trachea midline. Absent: lymphadenopathy - Respiratory Respiratory exam: Present: CTAB. Absent: accessory muscle use, rales, rhonchi, wheezes - Cardiovascular Cardiovascular exam: Present: RRR, +S1, +S2. Absent: diastolic murmur, gallop, rubs, systolic murmur - GI/Abdominal GI/Abdominal exam: Present: normal bowel sounds, soft, no peritoneal signs. Absent: distended, tenderness - Extremities Exam Extremities exam: Present: warm, radial pulses palpable and symmetrical. Absent : calf tenderness, cyanotic, pedal edema Additional comments: left hand slightly swollen. No limits to ROM. Hand grasp equal. - Neurological Exam Neurological exam: Present: CN II-XII intact, oriented X3, no focal deficits. Absent: pronater drift, facial droop, speech deficit - Skin Skin exam: Present: dry, intact Additional comments: Left SC pacer surgical incision appear intact and healthy Internal Medicine: Result - Labs CBC & Chem 7: 04/22/17 04:40 04/22/17 04:40 - ABG Interpretation ABG results: PT/INR, D-dimer PT 11.2 Seconds (9.4-12.1) 04/10/17 05:35 - VTE Documentation of Mechanical Device: Graduated compression elastic hosiery Consult Discharge Plan - Plan Referrals: Zaheer Cuba [Primary Care Provider] - (Follow up April at 2:30 Pacemaker Check [address] [place] [id number] Follow up March Cardiology [address] [place] [id number] )
[2017-04-25] MEDS: Acetaminophen 325 MG TABLET PO PRN ×3 (05:10→19:28)
[2017-04-25] MEDS: Aspirin Enteric Coated 325 MG Tablet PO SCH (08:27)
[2017-04-25] MEDS: *HR* LORazepam 0.5 MG TABLET PO PRN ×2 (08:27→19:28)
[2017-04-25] MEDS: *HR* Metformin 850 MG TABLET PO SCH ×2 (08:27→17:13)
--- NOTE | 2017-04-25 11:30 | Internal Med Progress Note ---
Date of Encounter: 04/25/17 Time of Encounter: 11:27 - Assessment and plan (1) Status post placement of cardiac pacemaker Current Visit: Yes Status: Acute (2) Physical deconditioning Current Visit: Yes Status: Acute (3) Essential hypertension Current Visit: Yes Status: Acute (4) Anemia Current Visit: Yes Status: Acute Qualifiers: Anemia type: unspecified type Qualified Code(s): D64.9 - Anemia, unspecified - Subjective Interval history: Participating well with therapy, but fatigues easily. continues to feeling stronger with therapy. Denies shortness of breath, fever, chills, nausea, vomiting, diarrhea. c/o slight DUMONT and bilat joints in hands hurting. Hx of arthritis and gout. started allopurinol yesterday and taking tylenol with minimal pain relief. no change in vision or neuro deficits. Maintaining appetite and hydration. Bowels moving as normal. left arm swelling improving. - Constitutional Vitals: Temp Pulse Resp BP Pulse Ox 98.1 F 76 16 180/79 96 04/25/17 07:28 04/25/17 07:28 04/25/17 07:28 04/25/17 07:28 04/25/17 07:28 General appearance: Present: A&O X 3, pleasant, no acute distress, answers questions appropriately - Head Head exam: Present: atraumatic, normocephalic - Eye Eye exam: Present: PERRL, conjuntiva pink, sclera anicteric Pupils: Present: PERRL - Neck Neck exam general surgery: Present: supple, trachea midline. Absent: lymphadenopathy - Respiratory Respiratory exam: Present: CTAB. Absent: accessory muscle use, rales, rhonchi, wheezes - Cardiovascular Cardiovascular exam: Present: RRR, +S1, +S2. Absent: diastolic murmur, gallop, rubs, systolic murmur - GI/Abdominal GI/Abdominal exam: Present: normal bowel sounds, soft, no peritoneal signs. Absent: distended, tenderness - Extremities Exam Extremities exam: Present: warm, radial pulses palpable and symmetrical. Absent : calf tenderness, cyanotic, pedal edema Additional comments: slight swelling in left arm and hand. joints swollen in bilat hands. ROM wnl. - Neurological Exam Neurological exam: Present: CN II-XII intact, oriented X3, no focal deficits. Absent: pronater drift, facial droop, speech deficit - Skin Skin exam: Present: dry, intact Internal Medicine: Result - Labs CBC & Chem 7: 04/22/17 04:40 04/22/17 04:40 - ABG Interpretation ABG results: PT/INR, D-dimer PT 11.2 Seconds (9.4-12.1) 04/10/17 05:35 - VTE Documentation of Mechanical Device: Graduated compression elastic hosiery Consult Discharge Plan - Plan Referrals: Zaheer Cuba [Primary Care Provider] - (Follow up April at 2:30 Pacemaker Check [address] [place] [id number] Follow up March Cardiology [address] [place] [id number] )
--- NOTE | 2017-04-25 13:50 | Discharge Summary ---
Date of Encounter: 04/25/17 Time of Encounter: 13:46 - Discharge Diagnosis (1) Status post placement of cardiac pacemaker Priority: Primary Status: Acute Comments: healed incision. f/u with cardiology (2) Physical deconditioning Priority: Secondary Status: Acute Comments: discharging to ECF. continue PT/OT. (3) Essential hypertension Priority: Secondary Status: Acute Comments: started norvasc 2.5mg daily. continue other meds. monitor BP (4) Anemia Priority: Secondary Status: Chronic Comments: stable Qualifiers: Anemia type: unspecified type Qualified Code(s): D64.9 - Anemia, unspecified - Discharge Medications Home Medications: Acetaminophen [Non-Aspirin] 650 mg PO Q6HR PRN 04/09/17 [History] Aspirin [Ecotrin] 325 mg PO DAILY 04/09/17 [History] Bisacodyl [Woman's Laxative] 10 mg PO DAILY PRN 04/09/17 [History] Calcium Carbonate [Calcium] 600 mg PO DAILY 04/09/17 [History] Losartan [Cozaar] 100 mg PO DAILY 04/09/17 [History] Raloxifene [Evista] 60 mg PO DAILY 04/09/17 [History] metFORMIN [Glucophage] 850 mg PO BIDWM 04/09/17 [History] Allopurinol [Zyloprim 100 MG] 100 mg PO DAILY 04/11/17 [History] Meclizine [Antivert] 25 mg PO HS 04/11/17 [History] Metoprolol [Lopressor] 50 mg PO DAILY 04/11/17 [History] amLODIPine [Norvasc] 5 mg PO DAILY 04/11/17 [History] Allergies/Adverse Reactions: 3 Allergy/AdvReac Type Severity Reaction Status Date / Time amiodarone Allergy See Verified 04/09/17 21:49 Comments Date of admission: 04/09/17 20:42 Primary care physician: Zaheer Cuba Consults: 04/09/17 21:53 Consult to Occupational Therapy [CONS] Routine Comment: Eval and Treat Reason for Consult: Eval and Treat Consult to Physical Therapy [CONS] Routine Comment: Eval and Treat Reason for Consult: Eval and Treat Consult to Recreational Therapy [CONS] Routine Comment: Consult to Second Shift Supervisor [CONS] Routine Reason for SW Consult: Discharge planning 04/11/17 16:28 Consult to Psychology [CONS] Routine Consulting Provider: Kaye Will Reason for Consult: evaluation of anxiety Call Completed: No Discharging clinician: Yamilka Juarez Anticipated date of discharge: 04/26/17 - Patient Status Disposition: Transfer SNF Condition: Good Functional capacity at discharge: wheelchair bound Overall status at discharge: patient is progressing back to baseline - Discharge Instructions Follow Up With: Zaheer Cuba [Primary Care Provider] - (Follow up April at 2:30 Pacemaker Check [address] [place] [id number] Follow up March Cardiology [address] [place] [address] ) - Diet and Activity Activity: as per physical therapy, increase activity as tolerated Diet: advance to your usual diet Interval History: was here s/ pacemaker. incision healed. rate and rythm stable. continues to be weak and easily fatigues with therapy but has made slow progress. Hospital course: Ms. Mckeon is a 86 year old female - Time Spent with Patient Total time spent providing and/or coordinating discharge services: Less than 30 minutes - Constitutional Vitals: Temp Pulse Resp BP Pulse Ox 98.1 F 80 16 159/81 96 04/25/17 07:28 04/25/17 11:41 04/25/17 07:28 04/25/17 11:41 04/25/17 07:28 General appearance: Present: A&O X 3, pleasant, no acute distress, answers questions appropriately Exam: see exam dated on this day in progress note. - VTE Documentation of Mechanical Device: Graduated compression elastic hosiery
--- NOTE | 2017-04-25 14:02 | Physician Discharge Referral ---
ExtendedCare Referral Info Transfer To: ECF Provider in Charge after Transfer: Other Institutional Level of Care: Skilled - Diagnosis (1) Status post placement of cardiac pacemaker Status: Acute (2) Physical deconditioning Status: Acute (3) Essential hypertension Status: Acute (4) Anemia Status: Chronic - Transfer Medications Home Medications: Acetaminophen [Non-Aspirin] 650 mg PO Q6HR PRN 04/09/17 [History] Aspirin [Ecotrin] 325 mg PO DAILY 04/09/17 [History] Bisacodyl [Woman's Laxative] 10 mg PO DAILY PRN 04/09/17 [History] Calcium Carbonate [Calcium] 600 mg PO DAILY 04/09/17 [History] Raloxifene [Evista] 60 mg PO DAILY 04/09/17 [History] metFORMIN [Glucophage] 850 mg PO BIDWM 04/09/17 [History] Allopurinol [Zyloprim 100 MG] 100 mg PO DAILY 04/11/17 [History] Allergies/Adverse Reactions: 3 Allergy/AdvReac Type Severity Reaction Status Date / Time amiodarone Allergy See Verified 04/09/17 21:49 Comments - Respiratory Orders Smoking Cessation: Smoking cessation has been advised. For more information, call the [place] Tobacco Quit Line at 5-661-ONQX-NOW. - Advance Directives Code Status: Full Code - Diet Orders Regular CERTIFICATION: I certify that the transfer of the above named patient to an Extended Care Facility is necessary for the continuing treatment of the diagnosis listed. The above information is true and accurate reflection of patient's current condition. Confidential - Redisclosure prohibited without a patient's written consent.
[2017-04-25] MEDS: amLODIPine 5 MG TABLET PO SCH (14:10)
[2017-04-26 09:44] VITALS: BP 173/76
[2017-04-26] MEDS: Aspirin Enteric Coated 325 MG Tablet PO SCH (09:47)
[2017-04-26] MEDS: Acetaminophen 325 MG TABLET PO PRN (09:47)
[2017-04-26] MEDS: amLODIPine 5 MG TABLET PO SCH (09:48)
[2017-04-26] MEDS: *HR* LORazepam 0.5 MG TABLET PO PRN (09:48)
[2017-04-26] MEDS: *HR* Metformin 850 MG TABLET PO SCH (09:48)
== END 2017-04-26 12:12 | DRG 949 ==
LOC: INPGRE 20:42
PROVIDERS: ADMIT Internal Medicine; ATTEND Internal Medicine